=== PATIENT | male | born 1960 | race Caucasian/White ===

== ENCOUNTER 2024-06-21 12:04 | Day surgery (SDC) | payer OTHER ==
[~2024-06-21] VITALS: Ht 182.9 cm; Wt 100.0 kg
[~2024-06-21 12:04] MED LIST: IBLOOD GLUCOSE TEST STRIP 1 EA TEST VI PRN; LACTATED RINGER'S 1,000 ML IV SCH; LIDOCAINE HCL 1% 5 ML SDV INJ ONE; MIDAZOLAM HCL 5 MG/5 ML VIAL IV PRN; fentaNYL citrate 100 MCG/2 ML VIAL IV PRN
[2024-06-21 12:24] VITALS: BP 137/79
[2024-06-21] MEDS ORDERED: fentaNYL citrate 100 MCG/2 ML VIAL ONE (12:52)
[2024-06-21] MEDS ORDERED: MIDAZOLAM HCL 5 MG/5 ML VIAL ONE (12:52)
--- NOTE | 2024-06-21 14:12 | NUR ---
06/21/24 1412 Gaby Banks 1405-PT ARRIVES TO PACU RESTING ON HIS LT SIDE, PT AWAKES EASILY TO VERBAL STIMULI BUT FALLS BACK TO SLEEP QUICKLY, PT DENIES PAIN OR NAUSEA. PT ENCOURAGED TO PASS GAS. VSS ON 3L VIA NC, RR EVEN AND UNALBORED.
[2024-06-21 15:35] VITALS: BP 132/72
--- NOTE | 2024-06-21 18:35 | OR ---
[facility] [address] [place], [place] [address] Signed DATE OF OPERATION: 06/21/2024 SURGEON: Edmundo Kern MD PREOPERATIVE DIAGNOSIS: Episodic rectal bleeding. POSTOPERATIVE DIAGNOSES: 1. Extensive diverticulosis. 2. Polyps x6. PROCEDURES: 1. Total colonoscopy to cecum with mucosal lift snare/tattoo hepatic flexure. 2. Cold morcellation polypectomy x2 and hot snare polypectomy x3. ANESTHESIA: Intravenous sedation; fentanyl 200 mcg and Versed 9 mg. INDICATION: This 64-year-old white man is a patient of Ely Sow and last saw me for a colonoscopy 21 years ago in 2002. The patient does have history of hemorrhoids and underwent hemorrhoidal banding in the past, last in 2012. He does have some episodic rectal bleeding currently. He is admitted at this time to undergo screening colonoscopy. He understands the risk of bleeding, infection, and perforation. FINDINGS: The prep was adequate. Complete colonoscopy was undertaken to the cecum. There are extensive diverticular changes of sigmoid and left colon and diverticula throughout actually. There were six polyps in total, the most notable was that at the hepatic flexure, which required a mucosal lift technique with tattoo dye and hot snare polypectomy. Other polyps were noted in the rectosigmoid and rectum, five additional in total, all excised completely. PROCEDURE IN DETAIL: The patient was brought to the endoscopy suite and placed in the lateral decubitus position, given intravenous sedation to the point of slurred speech and nystagmus. Digital rectal examination was normal. An Olympus video colonoscope was passed in the rectum noting three separate sessile polyps in the rectosigmoid area. Scope was advanced to the sigmoid, which showed Electronically Signed By: EDMUNDO KERN MD 06/21/24 1835 PATIENT NAME: CLARK MART OPERATIVE REPORT DATE OF : 60 REPORT #: [id number] PHYSICIAN: EDMUNDO KERN MD PCP: ELY SOW PA-C REPORT IS CONFIDENTIAL AND NOT TO BE RELEASED WITHOUT AUTHORIZATION [facility] [address] [place], [place] [address] Signed numerous diverticula. The scope was advanced ultimately beyond this to what appeared to be the right transverse colon where an elongated more complex polyp was noted. The scope was passed beyond this ultimately to the cecum with full intubation of the cecum. Ileocecal valve and appendiceal orifice were normal. Scope was withdrawn and examination undertaken ultimately identifying the right transverse/hepatic flexure polyp. Given its configuration, mucosal lift technique was deemed most advisable. Using the [employer]omark tattoo dye and sclerotherapy needle, appropriate mucosal lift was accomplished. Using hot snare polypectomy technique, snare polypectomy was undertaken with two separate specimens obtained. Unfortunately, only one was able to be retrieved and placed in a Cotto net, the scope removed fully. The scope was advanced back into the colon. Notably, was taken upon withdrawal of scope with the Cotto net showing no large polyps. Once the polyp was offloaded, the scope was reintroduced and examination undertaken. Angulation deformity and extensive diverticular changes were difficult to negotiate with limitations related to the patient tolerance. The scope was withdrawn to the rectosigmoid, where five additional polyps were noted, three of which were excised with hot snare technique, two with cold morcellation technique. Retroflexed view did confirm internal hemorrhoids not actively bleeding. The scope was removed and the patient was taken to the recovery room in good condition. CONCLUDING DIAGNOSES: 1. Diverticulosis. 2. Internal hemorrhoids. 3. Polyps x6. PLAN: I would recommend repeat colonoscopy in six months given the nature of the polyp of the hepatic flexure; we will be mindful of the pathology report of this polyp, though I think it is a benign adenoma. Possibility of dysplasia remains. He will return to the ongoing care of Ely Sow in the meantime. MD LEEANNE Mcqueen/GIAN /[id number] cc: Ely Sow PA-C Electronically Signed By: EDMUNDO KERN MD 06/21/24 1835 PATIENT NAME: CLARK MART OPERATIVE REPORT DATE OF : 60 REPORT #: [id number] PHYSICIAN: EDMUNDO KERN MD PCP: ELY SOW PA-C REPORT IS CONFIDENTIAL AND NOT TO BE RELEASED WITHOUT AUTHORIZATION [address] [place], [place] [address] Signed Copies: ELY SOW PA-C ~ Electronically Signed By: EDMUNDO KERN MD 06/21/24 1835 PATIENT NAME: CLARK MART OPERATIVE REPORT DATE OF : 60 REPORT #: [id number] PHYSICIAN: EDMUNDO KERN MD PCP: ELY SOW PA-C REPORT IS CONFIDENTIAL AND NOT TO BE RELEASED WITHOUT AUTHORIZATION
--- NOTE | 2024-06-23 12:08 | PATH ---
[facility] [address], [place] [address] Signed SPECIMEN(S): A HEPATIC FLEXURE POLYP SPECIMEN(S): B RECTUM POLYP SPECIMEN(S): C RECTUM POLYP SPECIMEN(S): D RECTUM POLYP SPECIMEN(S): E RECTUM POLYP SPECIMEN SOURCE: A. HEPATIC FLEXURE POLYP B. RECTUM POLYP C. RECTUM POLYP D. RECTUM POLYP E. RECTUM POLYP CLINICAL HISTORY: Pre-: Last colonoscopy 2002 (0 results). Post: Diverticulosis, polyps x 6 FINAL PATHOLOGIC DIAGNOSIS: A. Colon, hepatic flexure, polypectomy: - Tubular adenoma B. Rectum, polypectomy #1: - Hyperplastic polyp C. Rectum, polypectomy #2: - Hyperplastic polyp D. Rectum, polypectomy #3: - Hyperplastic polyp E. Rectum, polypectomy #4: - Hyperplastic polyp BRP MICROSCOPIC EXAMINATION: Histologic sections of all submitted blocks are examined by light microscopy. These findings, together with the gross examination, support the pathologic diagnosis. GROSS DESCRIPTION: A. The specimen, labeled and designated "Leann Mart, hepatic flexure polyp," is received in formalin and consists of seven galo soft tissue fragments, ranging from 0.2-1.1 cm. Entirely submitted in (A1). B. The specimen, labeled and designated "Leann Mart, rectum polyp," is received in formalin and consists of one galo soft tissue fragment, 0.4 cm. PATIENT NAME: CLARK MART PATHOLOGY DATE OF : 60 REPORT #: [id number] PHYSICIAN: GEGE DE LA PAZ PCP: SINGH OROZCO PA-C REPORT IS CONFIDENTIAL AND NOT TO BE RELEASED WITHOUT AUTHORIZATION [facility] [address] [place], [place] [address] Signed Entirely submitted in (B1). C. The specimen, labeled and designated "[place], S, rectum polyp #2," is received in formalin and consists of three galo soft tissue fragments, ranging from 0.2-0.3 cm. Entirely submitted in (C1). D. The specimen, labeled and designated "Abrahan, S, rectum polyp #3," is received in formalin and consists of one galo soft tissue fragment, 0.7 cm. Entirely submitted in (D1). E. The specimen, labeled and designated "Abrahan, S, rectum polyp #4," is received in formalin and consists of one galo soft tissue fragment, 0.5 cm. Entirely submitted in (E1). AB (under the direct supervision of a pathologist) The Gross Description was prepared using a voice recognition system. The report was reviewed for accuracy; however, sound-alike word errors, addition and/or deletions may occur. If there is any question about this report, please contact Client Services. ADDITIONAL NOTES: Immunohistochemical and/or in situ hybridization studies if performed in this case included appropriate positive controls that reacted as expected. This test was developed and its performance characteristics determined by [facility]. It has not been cleared or approved by the U.S. Food and Drug Administration. The FDA has determined that such clearance or approval is not necessary. This test is used for clinical purposes. It should not be regarded as investigational or for research. [facility] is certified under the Clinical Laboratory Improvement Amendments of 1988 (CLIA) as qualified to perform high complexity clinical laboratory testing. PERFORMING LABORATORY: Technical component was performed by [facility], [address] [place] [address] (CLIA# [id number]). Professional interpretation was performed by [facility] [address] [facility] [id number] Diagnostician: Parish Lopez MD Pathologist Electronically Signed 06/23/2024 Copies: PATIENT NAME: LCARK MART PATHOLOGY DATE OF : 60 REPORT #: [id number] PHYSICIAN: GEGE DE LA PAZ PCP: SINGH OROZCO PA-C REPORT IS CONFIDENTIAL AND NOT TO BE RELEASED WITHOUT AUTHORIZATION [address] [place] [address] Signed ~ PATIENT NAME: CLARK MART PATHOLOGY DATE OF : 60 REPORT #: [id number] PHYSICIAN: GEGE PATHOLOGY PCP: SINGH OROZCO PA-C REPORT IS CONFIDENTIAL AND NOT TO BE RELEASED WITHOUT AUTHORIZATION
== END 2024-06-21 15:30 | disposition home or self-care (01) ==
LOC: OPS 12:04 → DS 12:05 → OPS 13:00
PROVIDERS: ATTEND Surgery
PROC: 0DBL8ZZ Excision of Transverse Colon, Via Natural or Artificial Opening Endoscopic (ICD-10-PCS; principal; 2024-06-21 13:00)
DX: K62.5 Hemorrhage of anus and rectum (principal); D12.3 Benign neoplasm of transverse colon; K62.1 Rectal polyp; K64.8 Other hemorrhoids; K57.30 Diverticulosis of large intestine without perforation or abscess without bleeding
CPT/HCPCS: 88305; 99153; G0500; J2250; J3010; J7121

== ENCOUNTER 2024-09-20 07:35 | Day surgery (SDC) | payer OTHER ==
[~2024-09-20] VITALS: Ht 182.9 cm; Wt 100.0 kg
[2024-09-20 07:57] VITALS: BP 151/65
[2024-09-20] MEDS ORDERED: MIDAZOLAM HCL 5 MG/5 ML VIAL ONE (08:21)
[2024-09-20] MEDS ORDERED: fentaNYL citrate 100 MCG/2 ML VIAL ONE (08:21)
--- NOTE | 2024-09-20 09:23 | NUR ---
09/20/24 09 Sally Lion 0912 PT ARRIVED IN PACU SLEEPY WITH NO C/O'S. ABD SOFT AND PASSING FLATUS. 921 AWAKENS TO VERBAL STIMULI. AT BEDSIDE. ALL QUESTIONS ANSWERED.
[2024-09-20 09:52] VITALS: BP 125/74
--- NOTE | 2024-09-21 12:42 | OR ---
[facility] [address] [place], [place] [address] Signed DATE OF OPERATION: 09/20/2024 SURGEON: Edmundo Kern MD PREOPERATIVE DIAGNOSIS: Colon screening. POSTOPERATIVE DIAGNOSES: 1. Sigmoid diverticulosis. 2. Small polyp, left colon and two small polyps, rectum. PROCEDURES: Total colonoscopy to cecum with cold morcellation polypectomy x1 and cold snare polypectomy x1. ANESTHESIA: Intravenous sedation, fentanyl 150 mcg and Versed 5 mg. INDICATIONS: This 64-year-old white man is a patient of TATA Franco. He last underwent colonoscopy in 2002. 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 He also had internal hemorrhoidal changes. He did undergo hemorrhoidal banding with good effect. He does have history of rectal bleeding in more recent times, though none recently. He has no current diarrhea or constipation. He is admitted to undergo screening colonoscopy. He understands the risk of bleeding, infection, and perforation. FINDINGS: The prep was adequate. Complete colonoscopy was undertaken of the cecum. He had diverticula of the sigmoid and it scattered elsewhere. There was a small polyp at the proximal descending colon, which was excised with cold snare technique and two very small polyps of the low rectum excised with cold morcellation technique. There were no other findings of concern. DESCRIPTION OF PROCEDURE: The patient was brought to the endoscopy suite and placed in the lateral decubitus position given intravenous sedation to the point of slurred speech and nystagmus with full cardiopulmonary monitoring. Digital rectal examination was normal. An Olympus video colonoscope was passed in the rectum and manipulated into the sigmoid, Electronically Signed By: EDMUNDO KERN MD 09/21/24 1242 PATIENT NAME: CLARK MART OPERATIVE REPORT DATE OF : 60 REPORT #: [id number] PHYSICIAN: EDMUNDO KERN MD PCP: ELY SOW PA-C REPORT IS CONFIDENTIAL AND NOT TO BE RELEASED WITHOUT AUTHORIZATION [facility] [address] [place], [place] [address] Signed where diverticula were noted. The scope was advanced beyond this ultimately to the cecum. The ileocecal valve and appendiceal orifice were normal. Scope was withdrawn from that point and irrigation undertaken as needed, having good visualization of the colon, so in scattered diverticula of the right colon and transverse to a degree. In the proximal descending colon, there was a small sessile polyp, this was excised with cold snare technique. Specimen was passed to pathology. Further withdrawal confirmed numerous diverticula of the sigmoid and left colon. Retroflexed view of the rectum showed two very small polyps of the low rectum, both excised with cold morcellation technique. The scope was straightened, withdrawn, and removed. The patient was taken to the recovery room in good condition. CONCLUDING DIAGNOSES: 1. Polyps x2. 2. Diverticulosis. PLAN: Recommend repeat colonoscopy in 7-10 years, sooner if symptoms should develop. Recommend high-fiber diet as well. He will return to the ongoing care of TATA Carvajal. MD LEEANNE Mcqueen/GIAN /[id number] cc: Ely Sow PA-C Copies: ELY SOW PA-C ~ Electronically Signed By: EDMUNDO KERN MD 09/21/24 1242 PATIENT NAME: CLARK MART OPERATIVE REPORT DATE OF : 60 REPORT #: [id number] PHYSICIAN: EDMUNDO KERN MD PCP: ELY SOW PA-C REPORT IS CONFIDENTIAL AND NOT TO BE RELEASED WITHOUT AUTHORIZATION
--- NOTE | 2024-09-22 11:15 | PATH ---
[facility] [address] [facility] [place], [place] [address] Signed SPECIMEN(S): A DESCENDING COLON POLYP SPECIMEN(S): B RECTAL POLYP SPECIMEN SOURCE: A. DESCENDING COLON POLYP B. RECTAL POLYP G [id number] CLINICAL HISTORY: Pre-: History of tubular adenoma. Post: Hemorrhoids, diverticuli, polyps x 2. FINAL PATHOLOGIC DIAGNOSIS: A. Descending colon polyp: - Tubular adenoma. - Negative for high-grade dysplasia or malignancy. B. Rectal polyp: - Sessile serrated adenoma. - No dysplasia or malignancy identified. [facility] MICROSCOPIC EXAMINATION: Histologic sections of all submitted blocks are examined by light microscopy. These findings, together with the gross examination, support the pathologic diagnosis. GROSS DESCRIPTION: A. The specimen, labeled and designated "[place], S, descending colon polyp," is received in formalin and consists of two galo soft tissue fragments, ranging from 0.3-0.4 cm. Entirely submitted in (A1). B. The specimen, labeled and designated "Abrahan, S, rectal polyp," is received in formalin and consists of three galo soft tissue fragments, ranging from 0.2-0.4 cm. Entirely submitted in (B1). AB (under the direct supervision of a pathologist) The Gross Description was prepared using a voice recognition system. The report was reviewed for accuracy; however, sound-alike word errors, addition and/or deletions may occur. If there is any question about this report, please contact Client Services. ADDITIONAL NOTES: Immunohistochemical and/or in situ hybridization studies if performed in this PATIENT NAME: CLARK MART PATHOLOGY DATE OF : 60 REPORT #: [id number] PHYSICIAN: GEGE DE LA PAZ PCP: SINGH OROZCO PA-C REPORT IS CONFIDENTIAL AND NOT TO BE RELEASED WITHOUT AUTHORIZATION [address], [place] [address] Signed case included appropriate positive controls that reacted as expected. This test was developed and its performance characteristics determined by [facility]. It has not been cleared or approved by the U.S. Food and Drug Administration. The FDA has determined that such clearance or approval is not necessary. This test is used for clinical purposes. It should not be regarded as investigational or for research. [facility] is certified under the Clinical Laboratory Improvement Amendments of 1988 (CLIA) as qualified to perform high complexity clinical laboratory testing. PERFORMING LABORATORY: Technical component was performed by [facility], [address] [place] [id number] (CLIA# [id number]). Professional interpretation was performed by [facility], [address] [place] [id number] (CLIA#: [id number]). Diagnostician: Guanaco Cruz MD Pathologist Electronically Signed 09/22/2024 Copies: ~ PATIENT NAME: CLARK MART PATHOLOGY DATE OF : 60 REPORT #: [id number] PHYSICIAN: GEGE DE LA PAZ PCP: SINGH OROZCO PA-C REPORT IS CONFIDENTIAL AND NOT TO BE RELEASED WITHOUT AUTHORIZATION
== END 2024-09-20 10:00 | disposition home or self-care (01) ==
LOC: DS 07:35
PROVIDERS: ATTEND Surgery
PROC: 0DBP8ZZ Excision of Rectum, Via Natural or Artificial Opening Endoscopic (ICD-10-PCS; 2024-09-20)
PROC: 0DBG8ZZ Excision of Left Large Intestine, Via Natural or Artificial Opening Endoscopic (ICD-10-PCS; principal; 2024-09-20 08:15)
DX: Z12.11 Encounter for screening for malignant neoplasm of colon (principal); D12.4 Benign neoplasm of descending colon; K62.1 Rectal polyp; K57.30 Diverticulosis of large intestine without perforation or abscess without bleeding; K64.8 Other hemorrhoids
CPT/HCPCS: 99153; G0500; J2250; J3010; J7121